=== PATIENT | male | born 1940 | race Two or more races ===

== ENCOUNTER 2021-09-06 20:53 | Emergency (ER) | payer OTHER ==
[~2021-09-06] VITALS: Ht 167.6 cm; Wt 70.3 kg
--- NOTE | 2021-09-06 22:20 | NUR ---
NO BEDS AVAILABLE IN THE ER. PLACED IN HALLWAY.
[2021-09-06 22:29] LABS: HEMATOCRIT 34.1 % (36.7-47.1); MEAN CORPUSCULAR HEMOGLOBIN 29.6 uug (23.8-33.4); MEAN CORPUSCULAR VOLUME 88.9 fL (73.0-96.2); PLATELET COUNT (AUTO) 126 K/uL (152-348)
[2021-09-06 22:42] LABS: CREATININE 1.2 mg/dL (0.6-1.3); POTASSIUM 4.3 mmol/L (3.5-5.1)
[2021-09-06 22:56] LABS: BILIRUBIN,DIRECT 0.1 mg/dL (0.0-0.2); BILIRUBIN,TOTAL 0.3 mg/dL (0.2-1.0); TOTAL PROTEIN, SERUM 7.8 g/dL (6.4-8.2)
[2021-09-06] MEDS ORDERED: ASPIRIN 325 MG TABLET PO ONE (23:15)
[2021-09-06] MEDS ORDERED: ASPIRIN 325 MG TABLET ONE (23:37)
[2021-09-06] MEDS ORDERED: CARBIDOPA/LEVODOPA 25-100MG TABLET PO SCH (23:45)
[2021-09-06] MEDS ORDERED: CARBIDOPA/LEVODOPA 25-100MG TABLET ONE (23:45)
--- NOTE | 2021-09-07 01:10 | NUR ---
Patient in room 2A, pt awake alert, Scottish speaking.
[2021-09-07 01:28] LABS: *BILIRUBIN,URIN NEGATIVE (NEGATIVE); *CLARITY,URINE CLOUDY (CLEAR); *COLOR,URINE YELLOW (YELLOW); *KETONES,URINE TRACE (NEGATIVE); *UROBILINOGEN,URINE 0.2 E.U./dl (NORMAL); LEUKOCYTE ESTERASE ,URINE 2+ (NEGATIVE); NITRITE, URINE NEGATIVE (NEGATIVE); UGLUCOSE NEGATIVE (NEGATIVE)
[2021-09-07 01:31] LABS: *BLOOD, URINE TRACE (NEGATIVE)
--- NOTE | 2021-09-07 01:40 | NUR ---
Suman from [facility] called for status update. Informed him the patient is Covid Positive.
--- NOTE | 2021-09-07 01:42 | NUR ---
Patient transferred to room 1A. Provided meal to patient. Able to communicate with some [place] to patient to inform him he is Covid positive.
[2021-09-07 01:44] LABS: BACTERIA,URINE MANY /HPF (NONE SEEN); SQUAMOUS EPITHELIAL CELL,UR MODERATE /HPF (NONE SEEN); WBC,URINE 50-80 /HPF (0-3)
[2021-09-07] MEDS ORDERED: CEFTRIAXONE 1 G in IV DEXTROSE 5% 50 ML IV ONE (02:00)
[2021-09-07] MEDS ORDERED: CEFTRIAXONE /D5W 50ML IVPB **ER PYXIS IV ONE (02:08)
[2021-09-07] MEDS ORDERED: CARB1TAB21 PO (02:53)
[2021-09-07] MEDS ORDERED: GLIP10TA11 PO (02:53)
[2021-09-07] MEDS ORDERED: TERA2CAP4 PO (02:53)
[2021-09-07] MEDS ORDERED: SIMV-49 PO (02:53)
[2021-09-07] MEDS ORDERED: LISI20TA30 PO (02:53)
[2021-09-07] MEDS ORDERED: METF-440 PO (02:53)
--- NOTE | 2021-09-07 03:02 | NUR ---
Assisted pt to [facility]. Returned patient back to [facility] with two person assist. Patient unable to have a bm.
--- NOTE | 2021-09-07 03:19 | NUR ---
Call to [facility] to get update [facility] tranfer, they state the patient is accepted to [facility] and they are still waiting on a bed.
--- NOTE | 2021-09-07 04:59 | NUR ---
Suman [facility]ell [facility] called back with transfer info. Patient will be going to [facility] Room 2101 Bed A. Call for report # , accepting MD is [facility] ETA is [phone].
--- NOTE | 2021-09-07 05:24 | NUR ---
call to [facility] to give report was told the nurse is not available and they will call back in 15 minutes.
--- NOTE | 2021-09-07 05:56 | NUR ---
report given to Magnolia BORGES at [facility].
--- NOTE | 2021-09-07 06:29 | NUR ---
[facility] here to take pt to [facility]. Report given to
== END 2021-09-07 06:53 | disposition short-term general hospital (02) ==
LOC: ER 20:57
DX: E11.649 Type 2 diabetes mellitus with hypoglycemia without coma (principal); G93.41 Metabolic encephalopathy; Z79.84 Long term (current) use of oral hypoglycemic drugs; U07.1 COVID-19; G20 Parkinson's disease; R77.8 Other specified abnormalities of plasma proteins; N39.0 Urinary tract infection, site not specified; D69.6 Thrombocytopenia, unspecified; D64.9 Anemia, unspecified
CPT/HCPCS: 36415 ×2; 70450; 71045; 80048; 80076; 81001; 82962; 83605 ×2; 83880; 84145; 84484; 85025; 85730; 87040 ×2; 87086; 87426; 93005; 96365; 99285; J0696; 70030-TC; A4663